=== PATIENT | male | born 1985 | race Caucasian/White ===

== ENCOUNTER 2022-05-19 21:10 | Emergency (ER) | payer BC ==
[2022-05-19] MEDS: Al and Mag Hydroxide/Diphenhydramine/Lidocaine/Simethicone 237 ML Bottle PO PRN (21:45)
[2022-05-19] MEDS: cefTRIAXone 1 GM, Lidocaine 1% 1.2 ML IM SCH ×2 (21:47)
== END 2022-05-19 22:00 | disposition home or self-care (01) ==
LOC: LL.ED 21:10
DX: J03.90 Acute tonsillitis, unspecified (principal); Z79.899 Other long term (current) drug therapy; Z23 Encounter for immunization
CPT/HCPCS: 96372; 99282; 99283; A9270-GY; J0696